=== PATIENT | male | born 1990 | race Caucasian/White ===

== ENCOUNTER 2024-03-10 14:13 | Outpatient (OUT) | payer BC, SELFPAY ==
--- NOTE | 2024-03-10 15:00 | PM.PRESUREVA ---
History of Present Illness History of Present Illness Chief complaint: Condyloma and requests sterilization Narrative: Presents to preadmission testing for scheduled excision of condyloma and request for vasectomy. He is scheduled with surgery with Dr. Al on 03/30/2024 for vasectomy and excision CO2 laser of penile condyloma Review of Systems ROS Narrative REVIEW OF SYSTEMS: Negative except as stated in HPI, ten or more systems reviewed. Constitutional: No fever, chills, weakness ENT: No sore throat or epistaxis Cardiovascular: No edema, chest pain, palpitations, or activity intolerance Respiratory: No shortness of breath, cough, or wheezing Musculoskeletal: No joint pain or swelling Gastrointestinal: No abdominal pain, constipation, diarrhea, or vomiting Genitourinary: No dysuria or hematuria Neurological: No numbness, tingling, weakness, or headache Psychiatric: No mood changes PFSH PFSH Medical History (Updated 03/10/24 @ 15:02 by Vicky Rosales) Vertigo ?R42 - Dizziness and giddiness (ICD-10) Panic attacks ?F41.0 - Panic disorder [episodic paroxysmal anxiety] (ICD-10) Anxiety ?F41.9 - Anxiety disorder, unspecified (ICD-10) Depression ?F32.A - Depression, unspecified (ICD-10) Seasonal allergies ?J30.2 - Other seasonal allergic rhinitis (ICD-10) Postoperative nausea and vomiting ?R11.2 - Nausea with vomiting, unspecified (ICD-10) ?Z98.890 - Other specified postprocedural states (ICD-10) Surgical History (Updated 03/10/24 @ 14:41 by Vicky Rosales) History of hernia repair ?Z98.890 - Other specified postprocedural states (ICD-10) ?Z87.19 - Personal history of other diseases of the digestive system (ICD-10) Social History (Updated 03/10/24 @ 14:34 by Vicky Rosales) Within the past year, how often did you have a drink containing alcohol: never Score interpretation: A score less than 4 is consistent with normal alcohol consumption. Smoking status: Never smoker Non-prescribed substance use: denies use Previous occupational history: production Highest level of school completed/degree received: high school graduate Meds Home Medications and Allergies Home Medications ?Medication ?Instructions ?Recorded ?Confirmed ?Type fexofenadine 180 mg tablet 180 mg PO DAILY 03/10/24 03/10/24 History (Melissa Allergy) vortioxetine 20 mg tablet 20 mg PO DAILY 03/10/24 03/10/24 History (Trintellix) Allergies Allergy/AdvReac Type Severity Reaction Status Date / Time No Known Drug Allergies Allergy Verified 03/10/24 14:30 Exam Narrative Exam Narrative: Constitutional: Awake, alert, comfortable, well-appearing, nontoxic, interactive, vital signs as charted Head: Normocephalic, atraumatic Eyes: Conjunctiva and lids normal to inspection, pupils normal ENT: Tympanic membranes pearly arriola, nonerythematous, noninjected, naris patent, posterior oropharynx clear, oral mucosa moist Neck: Supple, normal appearance, normal range of motion, no meningeal signs, no lymphadenopathy no bruit Respiratory: No respiratory distress, breath sounds clear Cardiovascular: Regular rate and rhythm, strong and regular heart tones Abdomen: Nontender, normal bowel sounds, soft, no CVA tenderness Musculoskeletal: Normal gait, no swelling or edema Skin: No rashes or induration, no lesions, only visible skin inspected Neuro: No neurological deficits, normal sensation Psychiatric: Oriented ?3, normal affect Assessment and Plan Assessment and Plan (1) Vasectomy planned: (2) Genital condyloma, male:
== END 2024-03-10 14:14 | disposition home or self-care (01) ==
LOC: PST 14:18
PROVIDERS: PCP Student in an Organized Health Care Education/Training Program; Visit Provider Urology
DX: Z01.818 Encounter for other preprocedural examination (principal); A63.0 Anogenital (venereal) warts
CPT/HCPCS: G0463

== ENCOUNTER 2024-03-30 09:03 | Day surgery (SDC) | payer BC, SELFPAY ==
[2024-03-10 14:34] VITALS: BMI 30.5
[2024-03-10 14:57] VITALS: BP 133/92; PULSE 85; TEMP 36.4; O2SAT 98
[2024-03-30] VITALS (14 sets, daily range): BP systolic 105–141; BP diastolic 68–86; PULSE 61–85; TEMP 36.1; O2SAT 92–100; BMI 30.1
--- OUTSIDE RECORDS SUMMARY | 2024-03-30 09:26 | XMS_ITS | CCD ---
Author Organization [facility] Inform ion Partnership [facility] Care Team Providers Care Bank Worker Name Role Phone CHEVY Bedoya Primary Care Provider MD Tristan Tan Attending Provider [phone] Tristan Tan Attending Unavailable Farnaz Bedoya Primary Care Unavailable Tristan Tan Admitting Unavailable Tristan Tan Attending Unavailable Farnaz Bedoya Primary Care Unavailable Tristan Tan Admitting Unavailable Isha Newberry MD Primary Care Provider Farnaz Bedoya NP Unavailable TEODORO GARZA Attending Unavailable APRIL JUÁREZ Attending Unavailable SOCORRO RUIZ Attending Unavailable Laron AL Attending Unavailable Laron LA Attending Unavailable Laron AL Attending Unavailable Allergies Allergy Classification Reported Allergen(s) Allergy Type Date of Onset Reaction(s) Facility (1 source) No Known Medication Allergies; Translations: [No Known Medication Allergies] Propensity to adverse reactions (disorder) [facility] Repository Medications Current Medications Medication Drug Class(es) Dates Sig (Normalized) Sig (Original) cephalexin 500 mg oral capsule (1 source) Cephalosporin Antibacterial Start: 12-29-2023 End: 01-03-2024 take 1 capsule by mouth twice daily at mealtime Keflex 500 mg Cap 500 mg = 1 cap(s), Oral, BID, start with first meal after procedure, X 5 day(s), # 10 cap(s), Refills(s) 0, Pharmacy: [facility], 178, cm, 12/29/23 8:58:00 EDT, Height/Length Dosing, 95, kg, 12/29/23 8:58:00 EDT, Weight Dosing Start Date: 12/29/23 Stop Date: 01/03/24 Status: Ordered doxycycline hyclate 100 mg oral capsule (2 sources) Tetracycline-class Drug Start: 05-23-2023 End: 06-02-2023 doxycycline (Vibramycin) 100 MG capsule Indications: Acute recurrent maxillary sinusitis Take 1 capsule (100 mg) by mouth in the morning and 1 capsule (100 mg) before bedtime. Do all this for 10 days. Take with at least 8 ounces (large glass) of water, do not lie down for 30 minutes after. 20 capsule 0 05/23/2023 06/02/2023 Active Melissa (6 sources) Histamine-1 Receptor Antagonist Start: 12-29-2023 Melissa Oral, Refills(s) 0 Start Date: 12/29/23 Status: Ordered take 1 tablet by mouth once tameka y fexofenadine (Melissa Allergy) 180 MG tablet Take 1 tablet by mouth 1 (one) time each day. Active fexofenadine / Pseudoephedrine (1 source) alpha-Adrenergic Agonist, Histamine-1 Receptor Antagonist Start: 09-29-2017 take 1 tablet by mouth every twenty-four hours at bedtime Fexofenadine-Pseudoephedrine (Melissa-D 24 Hour) 180-240 mg Tablet Extended Release 24 Hr Active 180 MG PO Daily at bedtime September 28, 2017 11:00pm pantoprazole (7 sources) Proton Pump Inhibitor Start: 12-29-2023 pantoprazole Daily Start Date: 12/29/23 Status: Ordered Start: 08-12-2023 take 1 tablet by elton th once daily pantoprazole (Protonix) 40 MG EC tablet Indications: Gastroesophageal reflux disease, unspecified whether esophagitis present Take 1 tablet (40 mg) by mouth Daily 90 tablet 08/12/2023 Active Start: 04-21-2023 take 1 tablet by elton th in the morning pantoprazole (Protonix) 40 MG EC tablet Indications: Gastroesophageal reflux disease, unspecified whether esophagitis present Take 1 tablet (40 mg) by mouth in the morning. 90 tablet 0 04/21/2023 Active Start: 05-14-2022 take 40 mg by mouth once daily at bedtime Pantoprazole Active 40 MG PO Daily at bedtime May 14, 2022 12:00am vortioxetine 20 mg oral tablet (9 sources) Start: 02-21-2024 take 1 tablet by mouth once daily Vortioxetine HBr (Trintellix) 20 MG tablet Indications: Major depressive disorder in remission, unspecified whether recurrent (CMS/HCC) Take 1 tablet by mouth Daily 90 tablet 3 02/21/2024 Active Start: 02-21-2024 take 1 tablet by elton th once daily Vortioxetine HBr (Trintellix) 20 MG tablet Indications: Major depressive disorder in remission, unspecified whether recurrent (CMS/HCC) Take 1 tablet by mouth Daily 90 tablet 3 02/21/2024 Active Start: 12-29-2023 Trintellix Ora l, Daily, Refills(s) 0 Start Date: 12/29/23 Status: Ordered Start: 06-04-2023 End: 02-21-2024 take 1 tablet by mouth once daily Vortioxetine HBr (Trintellix) 20 MG tablet Indications: Major depressive disorder in remission, unspecified whether recurrent (CMS/HCC) Take 1 tablet by mouth Daily 90 tablet 1 06/04/2023 02/21/2024 Discontinued (Reorder) Start: 04-21-2023 take 1 tablet by elton th in the morning Vortioxetine HBr (Trintellix) 20 MG tablet Indications: Major depressive disorder in remission, unspecified whether recurrent (CMS/HCC) Take 1 tablet by mouth in the morning. 90 tablet 0 04/21/2023 Active Start: 05-14-2022 take 1 tablet by elton th once daily at bedtime Vortioxetine (Trintellix) 20 mg tablet Active 20 MG PO Daily at bedtime May 14, 2022 12:00am Completed/Discontinued Medications Medication Drug Class(es) Dates Sig (Normalized) Sig (Original) acetaminophen 325 mg / HYDROcodone bitartrate 5 mg oral tablet (1 source) Opioid Agonist Start: 09-29-2017 End: 10-06-2017 take 1 tablet by mouth every six hours Hydrocodone-Acetam inophen Discontinued 1 TAB PO Q6H 28 7 September 29, 2017 October 05, 2017 11:02pm omeprazole 20 mg delayed release oral capsule (1 source) Proton Pump Inhibitor Start: 09-29-2017 End: 05-14-2022 take 20 mg by mouth once daily Omeprazole Discontinued 20 MG PO Daily September 28, 2017 11:00pm May 14, 2022 1:27pm Problems Problem Classification Problem Date Documented Date Episodic/Chronic Abdominal hernia (1 source) Incisional hernia without obstruction or gangrene; Translations: [Incisional hernia without obstruction or gangrene] Onset: 05-28-2022 Episodic Anxiety disorders (4 sources) Generalized anxiety disorder; Translations: [Generalized anxiety disorder] 02-21-2024 Chronic Contraceptive and procreative management (1 source) Contraception status; Translations: [Encounter for other general counseling and advice on contraception] Onset: 12-29-2023 Episodic Esophageal disorders (2 sources) Gastroesophageal reflux disease; Translations: [Gastro-esophageal reflux disease without esophagitis] 02-21-2024 Chronic Mood disorders (3 sources) Major depression in remission; Translations: [Major depressive disorder, single episode, in full remission] 02-21-2024 Chronic Other male genital disorders (1 source) Skin disorder of male genitalia 12-29-2023 Episodic Other upper respiratory infections (2 sources) Acute recurrent maxillary sinusitis; Translations: [Acute maxillary sinusitis] 05-23-2023 Episodic Unclassified (2 sources) Patient on antidepressant monitoring plan Onset: 02-21-2024 02-21-2024 Unclassified (2 sources) Baseline PHQ-9 Onset: 02-21-2024 02-21-2024 Viral infection (1 source) Condyloma acuminatum of the anogenital region; Translations: [Anogenital (venereal) warts] Onset: 12-29-2023 Episodic Results Test Name Value Interpretation Reference Range Lisa brooksy Ambulatory Visit Summaryon 0 12-29-2023 Ambulatory Visit Summary Ambulatory Visit Summary ANDI RECIO :1990 Visit Date:12/29/2023 Ambulatory Visit Instructions Your Diagnosis Vasectomy evaluation Genital condyloma, male Your Care Team Attending Physician - MORGAN ALBARADO, Laron Willoughby This Is Your Medications List cephalexin (Keflex 500 mg Cap) Contact prescribing physician if questions or concerns fexofenadine (Melissa) pantoprazole vortioxetine (Trintellix) Procedures Performed Hernia. Discharge Vitals Heart Rate (Peripheral) 88 Respiratory Rate 16 Blood Pressure 138/98 Height 178 cm Height 70 in Weight 95.0 kg Weight 209 lb BMI 29.98 What to do next You Need to Schedule the Following Appointments Follow Up with MORGAN ALBARADO, Laron Willoughby, URL When: Comments: sched vas Where: [facility] [address] [place] [address] [phone] Medications What How Much When Instructions New cephalexin (Keflex 500 mg Cap) 1 Capsules By Mouth 2 times a day Duration: 5 Days start with first meal after procedure Pickup at [facility] Unchanged fexofenadine (Melissa) By Mouth Contact prescribing physician if questions or concerns Unchanged pantoprazole Every day Contact prescribing physician if questions or concerns Unchanged vortioxetine (Trintellix) By Mouth Every day Contact prescribing physician if questions or concerns Pharmacy Information [facility]: [address] [place], [place] [id number] [phone] Allergies No Known Medication Allergies Problems Ongoing - Any problem that you are currently receiving treatment for. Depression Genital condyloma, male Patient Survey You may receive a survey via text or e-mail asking about your office visit. Please share your experience with us by completing your survey. We appreciate your feedback and thank you for choosing us for your care. Education Materials Cryosurgery for Skin Conditions Cryosurgery, also called cryotherapy, is the use of extremely cold liquid (liquid nitrogen) to freeze and remove abnormal tissue. Cryosurgery may be used to remove certain growths on the skin, such as: ? Warts. ? Skin sores that could turn into cancer (precancerous skin lesions or actinic keratoses). ? Some skin cancers. Cryosurgery usually takes a few minutes, and it can be done in your health care provider's office. Tell a health care provider about: ? Any allergies you have. ? All medicines you are taking, including vitamins, herbs, eye drops, creams, and pwfg-ztx-qzjcfay medicines. ? Any problems you or family members have had with anesthesia. ? Any bleeding problems you have. ? Any surgeries you have had. ? Any medical conditions you have. ? Whether you are or may be . What are the risks? Your provider will talk with you about risks. These may include: ? Infection. ? Bleeding. ? Scars. ? Changes in skin color. These may include skin that is bilingual medical receptionist or darker than it was before it was treated. ? Swelling. ? Hair loss in the treated area. ? Damage to nearby structures or organs, such as nerve damage and loss of feeling. This is rare. What happens before the procedure? Your provider will describe the procedure and discuss the benefits and risks of the procedure with you. What happens during the procedure? ? Your treatment will be done in one of these two ways: ? Your provider may apply a device (probe) to the skin. The probe has liquid nitrogen flowing through it to cool it down. The probe will be applied to the skin until the growth is frozen and destroyed. ? Your provider may apply liquid nitrogen to the skin until the growth is frozen and destroyed with: ? A swab. ? A spray. ? The treated area may be covered with a bandage (dressing). The procedure may vary among providers and hospitals. What happens after the procedure? ? Your blood pressure, heart rate, breathing rate, and blood oxygen level may be monitored until you leave the hospital or clinic. ? You may have a mild stinging or burning feeling in the area that was treated. This information is not intended to replace advice given to you by your health care provider. Make sure you discuss any questions you have with your health care provider. Document Revised: 04/22/2023 Document Reviewed: 11/26/2022 [employer] Patient Education ? 2023 [employer]. Vasectomy, Care After This sheet gives you information about how to care for yourself after your procedure. Your health care provider may also give you more specific instructions. If you have problems or questions, contact your health care provider. What can I expect after the procedure? After the procedure, it is common to have: ? Mild pain, swelling, or discomfort in your scrotum or redness on your scrotum. ? Some blood coming from your incisions or puncture sites for 1 or 2 days. ? (more content not included)... Normal [facility] Urology Office/Clinic Noteon 12-29-2023 Urology Office/Clinic Note Urology Office/Clinic Note Chief Complaint New pt HPI Staff New Pt. Vasectomy consult. Pt has 3 children. Dysuria: denies pain or burning Incomplete bladder emptying: denies Hematuria: denies visible blood Frequency: denies Urgency: denies Nocturia: denies Stream: denies hesitancy, denies weak stream Leaking: denies Post void dripping: denies Wearing pads/ Depends: denies Urge incontinence: denies Stress incontinence: denies Incontinence without Sensory Awareness: denies Abdominal pain: denies Flank pain: denies Sexual complaints: denies History of Present Illness Tests reviewed: reviewed UA I have reviewed the previous health record information and history for this patient from external providers. I have reviewed and verified the staff HPI to be accurate for this encounter. Review of Systems PHQ Score Initial Depression Screen Score: 0 SCORE ROS - Provider Constitutional: denies weight loss, denies hot flashes. Eyes: denies eye problems. Gastrointestinal: denies nausea, denies vomiting. Cardiovascular: denies chest pain or angina. Integumentary: no dryness Musculoskeletal: denies musculoskeletal symptoms. ENMT: denies otolaryngeal symptoms. Respiratory: no shortness of breath. Heme/Lymph: denies easy bleeding tendency, denies easy bruising tendency. Psychiatric: no confusion, no anxiety. Genitourinary: See HPI. Physical Exam Vitals & Measurements HR: 88(Peripheral) RR: 16 BP: 138/98 HT: 70 in HT: 178 cm WT: 95.0 kg WT: 209 lb BMI: 29.98 General Appearance: alert, no distress, well nourished, well developed male. Head: normocephalic . Eyes: normal orbit and globe. ENMT: normal examination of external ears. Chest: Lungs CTA, respirations non labored. Cardiovascular: regular rate and rhythm. Abdomen: soft, non distended, no tenderness, no mass or organomegaly, no hernia. Genitourinary: normal scrotum, normal testes, normal urethra, normal epididymis, normal vas deferens/spermatic cord. Flank Pain: none. Bladder: nonpalpable. Penis: normal shaft, abnormal glans - multiple condylomas and skin tags. each is 1cm or less. Lymph Nodes: unremarkable palpation of the cervical area. Skin: warm, dry, no bruising. Psychiatric: cooperative, affect appropriate for age, normal judgement, euthymic mood. Assessment/Plan Andi is a 33 yo male new pt here for vasectomy consult. 1. Vasectomy evaluation (Z30.09: Encounter for other general counseling and advice on contraception) Pt has 3 children and desires sterilization. UA today negative for blood and infection. -Will schedule Vasectomy. The procedural risks, benefits, details, and treatment alternatives of sterilization have been discussed with the patient today. He understands this procedure is considered permanent, even though vasectomy reversals can be performed. There is no guarantee of successful reversal resulting in , however. Risks discussed include bleeding, infection, failure with in about 1:2500, post-vasectomy syndrome (chronic pain in the testicle or scrotum), possible association with prostate cancer development in the future, and erection problems, among others. Despite these risks, he wishes to proceed. He also understands that he is not considered sterile until a negative semen sample has been received after about 2-3 months after the vasectomy. Full informed consent has been obtained. Will order Mac anesthesia. 2. 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 Risks and Benefits were discussed with the patient. These include bleeding, infection, pain, and need for additional procedures. Pre-op consent reviewed with and obtained from patient. Order Mac anesthesia. Follow-up With When Contact Information MORGAN ALBARADO, Laron Willoughby, URL [facility] [address], [place] [address] [phone] Additional Instructions: sched vas & excision of condylomas Patient Education Cryosurgery for Skin Conditions Vasectomy, Care After Vasectomy Karla Szymanski, personally scribed for Dr. Al on 12/29/2023 10:06:04. . Documentation recorded by the scribeKarla, accurately reflects the services(s) I performed and decisions made by me. Authenticated by Dr. Al on 12/29/2023 10:09:18. Problem List/Past Medical History Ongoing Depression Genital condyloma, male Historical No qualifying data Procedure/Surgical History Hernia. Medications Melissa, Oral pantoprazole, Daily Trintellix, Oral, Daily Allergies No Known Medication Allergies Social History Tobacco Never (less than 100 in lifetime) Tobacco Use:. Never Smokeless Tobacco Use:., 12/29/2023 Family History Family history is negative Immunizations Vaccine Date Status SARS-CoV-2 (COVID-19) mRNA- (more content not included)... Normal [facility] Comment on above: Result Comment: Elec tronically Signed By: Laron AL MD\.br\Date and Time Signed: 12/29/23 10:09 EDT\.br\Electronically Co-Signed By: Karla Doty\.br\Date and Time Co-Signed: 12/29/23 10:06 EDT Nicholas 05-28-2022 L -- ---- Specimen: [id number] Received: 05/28/22 Status: MASONPrincess Willams Num: [id number] Spec Type: Surgical Subm Dr: Tristan Tan MD Tissues: A Hernia Sac (HERNIA SAC) Procedures: René SHELLEY/Wendy L2 ---- Age/ Patient Sex Location Account Attending Physician ---- Andi Recio 31/M [place] [id number] Tristan Tan MD ---- SPEC NUM: [id number] RECD: 05/28/22 STATUS: ERNESTINE WILLAMS NUM: [id number] VANNESA: 05/28/22- [facility] DR: Tristan Tan MD ENTERED: 05/28/[address] [facility] [address]: SPEC TYPE: Surgical DEPT: S ORDERED: HE, Gross/Micro L2 ORDERED: HE, Gross/Micro L2 Pathological Diagnosis Hernia sac, excision: - Benign fibroadipose tissue consistent with hernia sac. Clinical Information Incisional hernia Gross Description Received in formalin labeled with the patient's name, number and hernia sac is a 5.0 x 1.7 x 1.2 cm yellow red fibromembranous tissue with a urias-pink, rubbery cut surface. Applications Specialist sections are submitted in one cassette labeled A1. Microscopic Description One glass slide with H E stained material has been examined. The microscopic findings support the above pathologic diagnosis. CPT Codes 47868 ---- ---- Specimen: [id number] Received: 05/28/22 Status: ERNESTINE Екатерина Num: [id number] Spec Type: Surgical Subm Dr: Tristan Tan MD Tissues: A Hernia Sac (HERNIA SAC) Procedures: HE, Gross/Wendy L2 ---- Patient: Andi Recio [id number] (Continued) ---- Signed (signature on file) Harris Dunlap MD 05/29/22 1246 [facility] Vital Signs Date Time Vital Sign Value Performing Clinician Facility 02-21-2024 07:57-0500 Body height 180.3 cm Socorro Ruiz MD, IBCLC Work Phone: [facility] 02-21-2024 07:57-0500 Body mass index (BMI) [Ratio] 29.26 kg/m2 Socorro Ruiz MD, IBCLC Work Phone: [facility] 02-21-2024 07:57-0500 Body temperature 96.6 [degF] Socorro Ruiz MD, IBCLC Work Phone: [facility] 02-21-2024 07:57-0500 Body weight 95.17 kg Socorro Ruiz MD, IBCLC Work Phone: [facility] 02-21-2024 07:57-0500 Diastolic blood pressure 68 mm[Hg] Socorro Ruiz MD, IBCLC Work Phone: [facility] 02-21-2024 07:57-0500 Heart rate 92 /min Socorro Ruiz MD, IBCLC Work Phone: [facility] 02-21-2024 07:57-0500 SaO2% (BldA) [Mass fraction] 99 % Socorro Ruiz MD, IBCLC Work Phone: [facility] 02-21-2024 07:57-0500 Systolic blood pressure 120 mm[Hg] Socorro Ruiz MD, IBCLC Work Phone: [facility] 12-29-2023 08:56-0400 Blood Pressure Location Laron AL [facility] 12-29-2023 08:56-0400 Diastolic blood pressure 98 mm[Hg] Laron AL [facility] 12-29-2023 08:56-0400 Heart rate 88 /min Laron AL [facility] 12-29-2023 08:56-0400 Respiratory rate 16 /min Laron AL [facility] 12-29-2023 08:56-0400 Systolic blood pressure 138 mm[Hg] Laron AL [facility] 05-23-2023 14:52-0500 Body mass index (BMI) [Ratio] 30.56 kg/m2 Teodoro Garza DO Work Phone: [facility] 05-23-2023 14:52-0500 Body temperature 97.81 [degF] Teodoro Garza DO Work Phone: [facility] 05-23-2023 14:52-0500 Body weight 96.62 kg Teodoro Garza DO Work Phone: [facility] 05-23-2023 14:52-0500 Diastolic blood pressure 86 mm[Hg] Teodoro Garza DO Work Phone: [facility] 05-23-2023 14:52-0500 Heart rate 87 /min Teodoro Garza DO Work Phone: [facility] 05-23-2023 14:52-0500 SaO2% (BldA) [Mass fraction] 99 % Teodoro Garza DO Work Phone: [facility] 05-23-2023 14:52-0500 Systolic blood pressure 132 mm[Hg] Teodoro Garza DO Work Phone: [facility] 05-28-2022 12:31-0500 Diastolic blood pressure 74 mm[Hg] MEDICAL DATA ANALYST-C Farnaz Bedoya Work Phone: [facility] 05-28-2022 12:31-0500 Heart rate 73 /min MEDICAL DATA ANALYST-C Farnaz Aureliano Work Phone: [facility] 05-28-2022 12:31-0500 Respiratory rate 16 /min MEDICAL DATA ANALYST-C Farnaz Bedoya Work Phone: [facility] 05-28-2022 12:31-0500 SaO2% (BldA) [Mass fraction] 96 % MEDICAL DATA ANALYST-C Farnaz Bedoya Work Phone: [facility] 05-28-2022 12:31-0500 Systolic blood pressure 122 mm[Hg] MEDICAL DATA ANALYST-C Farnaz Bedoya Work Phone: [facility] 05-28-2022 11:08-0500 Body temperature 98.4 [degF] MEDICAL DATA ANALYST-C Farnaz Bedoya Work Phone: [facility] 05-28-2022 10:33-0500 Inhaled oxygen flow rate 8 L/min MEDICAL DATA ANALYST-C Farnaz Bedoya Work Phone: [facility] 05-28-2022 08:52-0500 Body height 180.34 cm MEDICAL DATA ANALYST-C Farnaz Bedoya Work Phone: [facility] 05-28-2022 08:52-0500 Body mass index (BMI) [Ratio] 29.5 kg/m2 MEDICAL DATA ANALYST-C Farnaz Aureliano Work Phone: [facility] 05-28-2022 08:52-0500 Body weight 96 kg VINNY-C Farnazantony Bedoya Work Phone: [facility] Encounters Encounter Date Encounter Type Care Provider Facility Start: 05-03-2024 ambulatory Laronolya AL Evelyn ty:[facility] Start: 03-30-2024 ambulatory Laronolya AL Facili ty:[id number] Start: 02-21-2024 End: 02-21-2024 Bamboo flowsheet Socorro Ruiz MD, IBCLC Work Phone: [facility] Start: 02-21-2024 End: 02-21-2024 Bamboo flowsheet Socorro Ruiz MD, IBCLC Work Phone: [facility] Start: 02-21-2024 End: 02-21-2024 Patient encounter status Socorro Ruiz MD, IBCLC Work Phone: [facility] Work Phone: Start: 02-21-2024 End: 02-21-2024 Periodic preventive med est patient 18-39 yrs Socorro Ruiz MD, IBCLC Work Phone: [facility] Comment on above: Well adult exam (Zoraida malena Dx); Major depressive disorder in remission, unspecified whether recurrent (CMS/HCC); Generalized anxiety disorder (CMS/HCC); Panic attacks (CMS/HCC); Gastroesophageal reflux disease, unspecified whether esophagitis present Start: 02-21-2024 End: 02-21-2024 ambulatory SOCORRO RUIZ Not Available Start: 01-28-2024 ambulatory Laronolya AL Facility :[facility] Start: 12-29-2023 End: 12-29-2023 ambulatory Laron Fartun AL Facility:[facility] Start: 12-29-2023 End: 12-29-2023 Patient encounter procedure Laron R AL [facility] Start: 05-23-2023 End: 05-23-2023 ambulatory TEODORO GARZA Not Available Start: 05-23-2023 End: 05-23-2023 Office outpatient visit 25 minutes Teodoro Garza DO Work Phone: [facility] Comment on above: Acute recurrent maxi llary sinusitis (Primary Dx) Start: 03-14-2023 End: 03-14-2023 ambulatory APRIL JUÁREZ Not Available Start: 05-28-2022 End: 05-28-2022 ambulatory [facility] Facility:[facility] Start: 05-28-2022 End: 05-28-2022 Admission to same day surgery center MEDICAL DATA ANALYST-Massimo Bedoya Work Phone: [facility] [place] Start: 05-28-2022 End: 05-28-2022 ambulatory VINNY-Massimo Bedoya Work Phone: [facility] Work Phone: Start: 05-14-2022 End: 05-14-2022 ambulatory [facility] Facility:[facility] Start: 05-14-2022 End: 05-14-2022 Patient encounter procedure VINNY-Massimo Bedoya Work Phone: [facility]-Pre-Surgical Testing Work Phone: Procedures Date Procedure Procedure Detail Performing Clinician Start: 05-28-2022 OR Incisional Hernia Repair W/Mesh (Not Applicable) CHEVY Bedoya Work Phone: Herniated structure (morphologic abnormality) Laron MORGAN Plan of Treatment Date Care Activity Detail Author Start: 04-17-2024 Influenza vaccination Influenza Vacc ine (#1) [facility] Comment on above: Postponed from 12/11 (Patient Refused) Start: 02-21-2024 End: 02-21-2024 Patient encounter procedure 02/21/2024 8:00 AM EST Office Visit [facility] [address] [place] [address] Socorro Ruiz MD, IBCLC [address] [place] [address] Arrived [facility] Comment on above: Arrived Start: 12-12-2023 Influenza vaccination Influenza Vacc ine (#1) [facility] Start: 12-11-2022 Influenza vaccination Influenza Vacc ine (#1) [facility] Start: 05-28-2022 End: 05-28-2022 [facility] Patient Education Abdominal Barbie ia Repair (DC) Hydrocodone and Acetaminophen [facility] Work Phone: Patient referral [facility] Work Phone: Immunizations Immunization Date Immunization Notes Care Provider Fa cility 08-30-2020 COVID-19 mRNA-1273 (Moderna) MEDICAL DATA ANALYST-C Farnaz Bedoya Work Phone: [facility] 08-01-2020 COVID-19 mRNA-1273 (Moderna) MEDICAL DATA ANALYST-C Farnaz Bedoya Work Phone: [facility] Payers Date Payer Category Payer Self-pay [id number] 2017 [facility] [id number] 2017 Unknown [id number] 2017 Unknown [id number] 1991 Unknown [id number] 1991 Unknown [id number] 1991 Unknown [id number] 1991 Unknown [id number] 1991 Unknown [id number] Unknown [employer] BARNES/AYAAN [id number] Unknown [id number] Unknown [id number] [id number] Social History Date Type Detail Facility Start: 05-28-2022 End: 12-29-2023 Tobacco smoking status [facility] Never smoked tobacco (finding) [facility] Start: 1990 Sex Assigned At Male [facility] Start: 05-23-2023 Tobacco smoking status [facility] Tobacco smoking consumption unknown [facility] Start: 1990 Sex Assigned At Not on file [facility] Start: 02-20-2024 Gender identity Not on file [facility] Start: 02-20-2024 History of Social function [facility] How often do you nee d to have someone help you when you read instructions, pamphlets, or other written material from your doctor or pharmacy [SILS] Never [facility] Do you belong to any clubs or organizations such as jainism groups, unions, fraternal or athletic groups, or school groups? No [facility] Are you now , , , , never or living with a partner? [facility] How often to you hav e a drink containing alcohol? Monthly or less [facility] How often do you hav e 6 or more drinks on 1 occasion? Never [facility] How hard is it for y ou to pay for the very basics like food, housing, medical care, and heating Not very hard [facility] Do you feel stress - tense, restless, nervous, or anxious, or unable to sleep at night because your mind is troubled all the time - these days [OSQ] Only a little [facility] (I/We) worried wheth er (my/our) food would run out before (I/we) got money to buy more. Never true [facility] Goals Date Patient Goal Desired Activity /State Personal health goal Functional Status Date Assessment Result Facility 12-29-2023 Functional Status N/A [facility] Clinical Notes 05-23-2023 to 02-21-2024 Socorro Ruiz MD, IBCLC - 02/21/2024 8:00 AM Cassy Garza DO - 05/23/2023 2:40 PM EST Note Date & Type Note Facility 02-21-2024 History of Present illness Narrative Images from the original note were not included. Pt is here for [place] paperwork Andi Recio is a 33 y.o. male who presents today for annual physical & wellness exam. Subjective History of Present Illness The patient is a 33-year-old male here today for an annual physical and follow-up on anxiety. He is diagnosed with anxiety and depression, which is currently well-managed with Trintellix. He states he has not been taking the PPI. He experiences intermittent heartburn for which he has been taking TUMS Supplemental Information He takes Melissa for allergies and Protonix for GERD. He has [place] paperwork that needs filled out. Past Medical History: Diagnosis Date Depression (CMS/HCC) Seasonal allergies Past Surgical History: Procedure Laterality Date HERNIA REPAIR Social History Socioeconomic History Marital status: Unmarried Spouse name: Not on file Number of children: Not on file Years of education: Not on file Highest education level: Not on file Occupational History Not on file Tobacco Use Smoking status: Unknown Smokeless tobacco: Not on file Substance and Sexual Activity Alcohol use: Not on file Drug use: Not on file Sexual activity: Not on file Other Topics Concern Not on file Social History Narrative Not on file Social Drivers of Health Financial Resource Strain: Low Risk (02/20/2024) Overall Financial Resource Strain (CARDIA) Difficulty of Paying Living Expenses: Not very hard Food Insecurity: No Food Insecurity (02/20/2024) Hunger Vital Sign Worried About Running Out of Food in the Last Year: Never true Ran Out of Food in the Last Year: Never true Transportation Needs: No Transportation Needs (02/20/2024) PRAPARE - Transportation Lack of Transportation (Medical): No Lack of Transportation (Non-Medical): No Physical Activity: Sufficiently Active (02/20/2024) Exercise Vital Sign Days of Exercise per Week: 5 days Minutes of Exercise per Session: 60 min Stress: No Stress Concern Present (02/20/2024) [place] [place] [employer] - Occupational Stress Questionnaire Feeling of Stress : Only a little Social Connections: Socially Isolated (02/20/2024) Social Connection and Isolation Panel [NHANES] Frequency of Communication with Friends and Family: Once a week Frequency of Social Gatherings with Friends and Family: Once a week Attends Muslim Services: Never Active Member of Clubs or Organizations: No Attends Club or Organization Meetings: Patient declined Marital Status: Intimate Partner Violence: Not on file Housing Stability: Low Risk (02/20/2024) Housing Stability Vital Sign Unable to Pay for Housing in the Last Year: No Number of Times Moved in the Last Year: 0 Homeless in the Last Year: No No family history on file. Current Outpatient Medications on File Prior to Visit Medication Sig Dispense Refill fexofenadine (Melissa Allergy) 180 MG tablet Take 1 tablet by mouth 1 (one) time each day. pantoprazole (Protonix) 40 MG EC tablet Take 1 tablet (40 mg) by mouth Daily 90 tablet 0 Vortioxetine HBr (Trintellix) 20 MG tablet Take 1 tablet by mouth Daily 90 tablet 1 No current facility-administered medications on file prior to visit. I have reviewed and reconciled the history and medication list with the patient today. Healthcare Maintenance & Screening Schedule Most recent: Colon cancer screening not indicated at this time HTN Controlled Yes Annual screening labs N/A Advanced Care Planning N Vaccines Pneumococcal N/A Shingles N/A Flu Patient declines RSV N/A TDaP Patient declines Care Team Patient Care Team: Isha Newberry MD as PCP - General (Family Medicine) Farnaz Bedoya NP as Nurse Practitioner (Family Medicine) Objective Vitals: Vitals: 02/21/24 0757 BP: 120/68 Pulse: 92 Temp: 96.6 F SpO2: 99% Physical Exam: Physical Exam Constitutional: General: He is awake. Appearance: He is well-developed and normal weight. HENT: Head: Normocephalic and atraumatic. Right Ear: Tympanic membrane, ear canal and external ear normal. Left Ear: Tympanic membrane, ear canal and external ear normal. Nose: No mucosal edema, congestion or rhinorrhea. Mouth/Throat: Mouth: Mucous membranes are moist. No oral lesions. Dentition: Normal dentition. Eyes: General: No scleral icterus. Extraocular Movements: Extraocular movements intact. Conjunctiva/sclera: Conjunctivae normal. Neck: Thyroid: No thyroid mass, thyromegaly or thyroid tenderness. Cardiovascular: Rate and Rhythm: Normal rate and regular rhythm. Heart sounds: Normal heart sounds, S1 normal and S2 normal. No murmur heard. No friction rub. No gallop. Pulmonary: Effort: Pulmonary effort is normal. Breath sounds: Normal breath sounds. No wheezing, rhonchi or rales. Abdominal: General: Bowel sounds are normal. There is no distension. Palpations: Abdomen is soft. Tenderness: There is no abdominal tenderness. Musculoskeletal: General: Normal range of motion. Cervical back: Normal range of motion and neck supple. Right lower leg: No edema. Left lower leg: No edema. Lymphadenopathy: Cervical: No cervical adenopathy. Skin: General: Skin is warm and dry. Neurological: General: No focal deficit present. Mental Status: He is alert and oriented to person, place, and time. Mental status is at baseline. Sensory: Sensation is intact. Motor: Motor function is intact. Psychiatric: Attention and Perception: Attention normal. Mood and Affect: Affect normal. Speech: Speech normal. Behavior: Behavior is cooperative. Thought Content: Thought content normal. Assessment & Plan Andi Recio is a 33 y.o. male who presents today for annual physical & wellness exam. Assessment & Plan Well adult exam Normal physical exam today, except as noted. Medication reconciliation completed. Chronic conditions reviewed, stable. Reviewed healthcare maintenance and screening recommendations. Counseled on nutrition and exercise recommendations. Reviewed immunizations recommendations Major depressive disorder in remission, unspecified whether recurrent (CMS/HCC) well controlled Current medications: Trintillex 20mg daily Encouraged regular physical exercise, well-rounded diet, engaging in hobbies outside of work, and interacting with friends. Monitor symptoms every 1 year or sooner if needed Generalized anxiety disorder (CMS/HCC) Chronic. well controlled Current medications: Trintillex 20mg daily Continue current regimen. Reviewed counseling & pharmacotherapy options. Encouraged regular physical exercise, well-rounded diet, engaging in hobbies outside of work, and interacting with friends. Monitor symptoms every 1 year or sooner if needed Panic attacks (CMS/HCC) Intermittent. Unable to work if these happen. Filled out [place] paperwork to permit 1 day per week off as needed for panic attacks. If these occur more often, we will schedule appt to discuss alternative treatment options. Gastroesophageal reflux disease, unspecified whether esophagitis present stable Reviewed use of antacid medication and/or diet modifications of decreasing caffeine, spicy foods, chocolate, and avoiding alcohol, tobacco, NSAIDs, and reducing citrus acids. Rlww-laf-sftuhll Pepcid and TUMS recommended for use as needed. If heartburn symptoms recur and interfere with daily activities, Protonix can be restarted. Follow up in 1 year for annual physical Socorro Ruiz MD, IBCLC [facility] documented in this encounter [facility] 12-29-2023 Hospital Discharge instructions Patient Education 12/29/2023 10:05:45 Cryosurgery for Skin Conditions Cryosurgery for Skin Conditions Cryosurgery, also called cryotherapy, is the use of extremely cold liquid (liquid nitrogen) to freeze and remove abnormal tissue. Cryosurgery may be used to remove certain growths on the skin, such as: Warts. Skin sores that could turn into cancer (precancerous skin lesions or actinic keratoses). Some skin cancers. Cryosurgery usually takes a few minutes, and it can be done in your health care provider's office. Tell a health care provider about: Any allergies you have. All medicines you are taking, including vitamins, herbs, eye drops, creams, and yyat-ukj-akiavxk medicines. Any problems you or family members have had with anesthesia. Any bleeding problems you have. Any surgeries you have had. Any medical conditions you have. Whether you are or may be . What are the risks? Your provider will talk with you about risks. These may include: Infection. Bleeding. Scars. Changes in skin color. These may include skin that is bilingual medical receptionist or darker than it was before it was treated. Swelling. Hair loss in the treated area. Damage to nearby structures or organs, such as nerve damage and loss of feeling. This is rare. What happens before the procedure? Your provider will describe the procedure and discuss the benefits and risks of the procedure with you. What happens during the procedure? Your treatment will be done in one of these two ways: ?Your provider may apply a device (probe) to the skin. The probe has liquid nitrogen flowing through it to cool it down. The probe will be applied to the skin until the growth is frozen and destroyed. ?Your provider may apply liquid nitrogen to the skin until the growth is frozen and destroyed with: ?A swab. ?A spray. The treated area may be covered with a bandage (dressing). The procedure may vary among providers and hospitals. What happens after the procedure? Your blood pressure, heart rate, breathing rate, and blood oxygen level may be monitored until you leave the hospital or clinic. You may have a mild stinging or burning feeling in the area that was treated. This information is not intended to replace advice given to you by your health care provider. Make sure you discuss any questions you have with your health care provider. Document Revised: 04/22/2023 Document Reviewed: 11/26/2022 [employer] Patient Education 2023 [employer]. 12/29/2023 09:48:36 Vasectomy, Care After Vasectomy, Care After This sheet gives you information about how to care for yourself after your procedure. Your health care provider may also give you more specific instructions. If you have problems or questions, contact your health care provider. What can I expect after the procedure? After the procedure, it is common to have: Mild pain, swelling, or discomfort in your scrotum or redness on your scrotum. Some blood coming from your incisions or puncture sites for 1 or 2 days. Blood in your semen. Follow these instructions at home: Medicines Take zinm-thr-zfnhwem and prescription medicines only as told by your health care provider. Avoid taking any medicines that contain aspirin or NSAIDs, such as ibuprofen. These medicines can make bleeding worse. Activity For the first 2 days after surgery, avoid physical activity and exercise that requires a lot of energy. Ask your health care provider what activities are safe for you. Do not take part in sports or perform heavy physical labor until your pain has improved, or until your health care provider says it is okay. You may have limits on the amount of weight you can lift as told by your health care provider. Do not ejaculate for at least 1 week after the procedure, or for as long as you are told. You may resume sexual activity 7 10 days after your procedure, or when your health care provider approves. Use a different method of control (contraception) until you have had test results that confirm that there is no sperm in your semen. Scrotal support Use scrotal support, such as a jockstrap or underwear with a supportive pouch, as needed for 1 week after your procedure. If you feel discomfort in your scrotum, you may remove the scrotal support to see if the discomfort is relieved. Sometimes scrotal support can press on the scrotum and cause or worsen discomfort. If your skin gets irritated, you may add some germ-free (sterile), fluffed bandages or a clean washcloth to the scrotal support. Managing pain and swelling If directed, put ice on the affected area. To do this: Put ice in a plastic bag. Place a towel between your skin and the bag. Leave the ice on for 20 minutes, 2 3 times a day. Remove the ice if your skin turns bright red. This is very important. If you cannot feel pain, heat, or cold, you have a greater risk of damage to the area. General instructions Check your incisions or puncture sites every day for signs of infection. Check for: ?Redness, swelling, or more pain. ?Fluid or blood. ?Warmth. ?Pus or a bad smell. Leave stitches (sutures) in place. The sutures will dissolve on their own and do not need to be removed. Keep all follow-up visits. This is important because you will need a test to confirm that there is no sperm in your semen. Multiple ejaculations are needed to clear out sperm that were beyond the vasectomy site. You will need one test result showing that there is no sperm in your semen before you can resume unprotected sex. This may take 2 4 months after your procedure. If you were given a sedative during the procedure, it can affect you for several hours. Do not drive or operate machinery until your health care provider says that it is safe. Contact a health care provider if: You have redness, swelling, or more pain around an incision or puncture site, or in your scrotum area. You have bleeding from an incision or puncture site. You have pus or a bad smell coming from an incision or puncture site. You have a fever. An incision or puncture site opens up. Get help right away if: You develop a rash. You have trouble breathing. Summary After your procedure, it is common to have mild pain, swelling, redness, or discomfort in your scrotum. For the first 2 days after surgery, avoid physical activity and exercise that requires a lot of energy. Put ice on the affected area. Leave the ice on for 20 minutes, 2 3 times a day. If you were given a sedative during the procedure, it can affect you for several hours. Do not drive or operate machinery until your health care provider says that it is safe. This information is not intended to replace advice given to you by your health care provider. Make sure you discuss any questions you have with your health care provider. Document Revised: 08/15/2020 Document Reviewed: 08/15/2020 [employer] Patient Education 2023 [employer]. 12/29/2023 09:48:35 Vasectomy Vasectomy Vasectomy is a procedure in which the vas deferens is cut and then tied or burned (cauterized). The vas deferens is a tube that carries sperm from the testicle to the part of the body that drains urine from the bladder (urethra). This procedure blocks sperm from going through the vas deferens and penis during ejaculation. This ensures that sperm does not go into the vagina during sex. Vasectomy does not affect sexual desire or performance and does not prevent sexually transmitted infections. Vasectomy is considered a permanent and very effective form of control (contraception). The decision to have a vasectomy should not be made during a stressful time, such as after the loss of a or a divorce. You and your partner should decide on whether to have a vasectomy when you are sure that you do not want children in the future. Tell a health care provider about: Any allergies you have. All medicines you are taking, including vitamins, herbs, eye drops, creams, and kjcg-thj-ftcdxei medicines. Any problems you or family members have had with anesthetic medicines. Any blood disorders you have. Any surgeries you have had. Any medical conditions you have. What are the risks? Generally, this is a safe procedure. However, problems may occur, including: Infection. Bleeding and swelling of the scrotum. The scrotum is the sac that contains the testicles, blood vessels, and structures that help deliver sperm and semen. Allergic reactions to medicines. Failure of the procedure to prevent . There is a very small chance that the tied or cauterized ends of the vas deferens may reconnect (recanalization). If this happens, you could still make a woman . Pain in the scrotum that continues after you heal from the procedure. What happens before the procedure? Medicines Ask your health care provider about: ?Changing or stopping your regular medicines. This is especially important if you are taking diabetes medicines or blood thinners. ?Taking medicines such as aspirin and ibuprofen. These medicines can thin your blood. Do not take these medicines unless your health care provider tells you to take them. ?Taking pqvj-sbo-rcbzceu medicines, vitamins, herbs, and supplements. You may be told to take a medicine to help you relax (sedative) a few hours before the procedure. General instructions Do not use any products that contain nicotine or tobacco for at least 4 weeks before the procedure. These products include cigarettes, e-cigarettes, and chewing tobacco. If you need help quitting, ask your health care provider. Plan to have a responsible adult take you home from the hospital or clinic. If you will be going home right after the procedure, plan to have a responsible adult care for you for the time you are told. This is important. Ask your health care provider: ?How your surgery site will be marked. ?What steps will be taken to help prevent infection. These steps may include: ?Removing hair at the surgery site. ?Washing skin with a germ-killing soap. ?Taking antibiotic medicine. What happens during the procedure? You will be given one or more of the following: ?A sedative, unless you were told to take this a few hours before the procedure. ?A medicine to numb the area (local anesthetic). Your health care provider will feel, or palpate, for your vas deferens. To reach the vas deferens, one of two methods may be used: ?A very small incision may be made in your scrotum. ?A punctured opening may be made in your scrotum, without an incision. Your vas deferens will be pulled out of your scrotum and cut. Then, the vas deferens will be closed in one of two ways: ?Tied at the ends. ?Cauterized at the ends to seal them off. The vas deferens will be put back into your scrotum. The incision or puncture opening will be closed with absorbable stitches (sutures). The sutures will eventually dissolve and will not need to be removed after the procedure. The procedure will be repeated on the other side of your scrotum. The procedure may vary among health care providers and hospitals. What happens after the procedure? You will be monitored to make sure that you do not have problems. You will be asked not to ejaculate for at least 1 week after the procedure, or for as long as you are told. You will need to use a different form of contraception for 2 4 months after the procedure, until you have test results confirming that there are no sperm in your semen. You may be given scrotal support to wear, such as a jockstrap or underwear with a supportive pouch. If you were given a sedative during the procedure, it can affect you for several hours. Do not drive or operate machinery until your health care provider says that it is safe. Summary Vasectomy blocks sperm from being released during ejaculation. This procedure is considered a permanent and very effective form of control. Your scrotum will be numbed with medicine (local anesthetic) for the procedure. After the procedure, you will be asked not to ejaculate for at least 1 week, or for as long as you are told. You will also need to use a different form of contraception until your test results confirm that there are no sperm in your semen. This information is not intended to replace advice given to you by your health care provider. Make sure you discuss any questions you have with your health care provider. Document Revised: 08/15/2020 Document Reviewed: 08/15/2020 [employer] Patient Education 2023 [employer]. Follow Up Care 10/06/2023 13:33:25 With:MORGAN ALBARADO, Laron Willoughby, URL Address: [facility] [address] [place] [address] [phone] When: Unknown Comments:meño blas [facility] 12-29-2023 Note Patient Education Dermatology Cryosurgery for Skin Conditions Cryosurgery, also called cryotherapy, is the use of extremely cold liquid (liquid nitrogen) to freeze and remove abnormal tissue. Cryosurgery may be used to remove certain growths on the skin, such as: ? Warts. ? Skin sores that could turn into cancer (precancerous skin lesions or actinic keratoses). ? Some skin cancers. Cryosurgery usually takes a few minutes, and it can be done in your health care provider's office. Tell a health care provider about: ? Any allergies you have. ? All medicines you are taking, including vitamins, herbs, eye drops, creams, and tjgl-xby-kzefopm medicines. ? Any problems you or family members have had with anesthesia. ? Any bleeding problems you have. ? Any surgeries you have had. ? Any medical conditions you have. ? Whether you are or may be . What are the risks? Your provider will talk with you about risks. These may include: ? Infection. ? Bleeding. ? Scars. ? Changes in skin color. These may include skin that is bilingual medical receptionist or darker than it was before it was treated. ? Swelling. ? Hair loss in the treated area. ? Damage to nearby structures or organs, such as nerve damage and loss of feeling. This is rare. What happens before the procedure? Your provider will describe the procedure and discuss the benefits and risks of the procedure with you. What happens during the procedure? ? Your treatment will be done in one of these two ways: ? Your provider may apply a device (probe) to the skin. The probe has liquid nitrogen flowing through it to cool it down. The probe will be applied to the skin until the growth is frozen and destroyed. ? Your provider may apply liquid nitrogen to the skin until the growth is frozen and destroyed with: ? A swab. ? A spray. ? The treated area may be covered with a bandage (dressing). The procedure may vary among providers and hospitals. What happens after the procedure? ? Your blood pressure, heart rate, breathing rate, and blood oxygen level may be monitored until you leave the hospital or clinic. ? You may have a mild stinging or burning feeling in the area that was treated. This information is not intended to replace advice given to you by your health care provider. Make sure you discuss any questions you have with your health care provider. Document Revised: 04/22/2023 Document Reviewed: 11/26/2022 [employer] Patient Education ? 2023 [employer] Urology Vasectomy, Care After This sheet gives you information about how to care for yourself after your procedure. Your health care provider may also give you more specific instructions. If you have problems or questions, contact your health care provider. What can I expect after the procedure? After the procedure, it is common to have: ? Mild pain, swelling, or discomfort in your scrotum or redness on your scrotum. ? Some blood coming from your incisions or puncture sites for 1 or 2 days. ? Blood in your semen. Follow these instructions at home: Medicines ? Take zwhw-fxg-akkgnpw and prescription medicines only as told by your health care provider. ? Avoid taking any medicines that contain aspirin or NSAIDs, such as ibuprofen. These medicines can make bleeding worse. Activity ? For the first 2 days after surgery, avoid physical activity and exercise that requires a lot of energy. Ask your health care provider what activities are safe for you. ? Do not take part in sports or perform heavy physical labor until your pain has improved, or until your health care provider says it is okay. ? You may have limits on the amount of weight you can lift as told by your health care provider. ? Do not ejaculate for at least 1 week after the procedure, or for as long as you are told. ? You may resume sexual activity 7?10 days after your procedure, or when your health care provider approves. Use a different method of control (contraception) until you have had test results that confirm that there is no sperm in your semen. Scrotal support ? Use scrotal support, such as a jockstrap or underwear with a supportive pouch, as needed for 1 week after your procedure. ? If you feel discomfort in your scrotum, you may remove the scrotal support to see if the discomfort is relieved. Sometimes scrotal support can press on the scrotum and cause or worsen discomfort. ? If your skin gets irritated, you may add some germ-free (sterile), fluffed bandages or a clean washcloth to the scrotal support. Managing pain and swelling If directed, put ice on the affected area. To do this: ? Put ice in a plastic bag. ? Place a towel between your skin and the bag. ? Leave the ice on for 20 minutes, 2?3 times a day. ? Remove the ice if your skin turns bright red. This is very important. If you cannot feel pain, heat, or cold, you have a greater risk of damage to (more content not included)... [facility] 05-23-2023 History of Present illness Narrative HPI: Historian of HPI: patient Andi Recio is a 32 y.o. male who presents today to the Urgent Care with the following complaints and denials which have been present for 10 day(s) C/O Denies Symptom Comments [x] [] Runny Nose [] [x] Difficulty Swallowing [] [x] Sore Throat [x] [] Cough [x] [] Ear Pain Jaw, right side [] [x] Fever [x] [] Chills Last weekend [x] [] Nasal Congestion [x] [] Myalgia Last weekend [] [x] Sinus Pain [] [x] Sinus Pressure Additional Comments: pt has taken tylenol, robatussin OTC medication with relief Pt stated his was seen about a week ago for the same sx and was treated for a sinus infection. ROS: A complete system ROS was performed and negative aside from the pertinent positives noted in the HPI and PE. Physical Exam Constitutional: Appearance: Normal appearance. HENT: Head: Normocephalic. Right Ear: Tympanic membrane normal. Left Ear: Tympanic membrane normal. Nose: Congestion present. Comments: Mild erythema of the nasal membranes noted. Mouth/Throat: Mouth: Mucous membranes are moist. Pharynx: Oropharynx is clear. Eyes: Extraocular Movements: Extraocular movements intact. Conjunctiva/sclera: Conjunctivae normal. Pupils: Pupils are equal, round, and reactive to light. Neck: Vascular: No carotid bruit. Comments: Mild swelling of the lymphatics at the right angle of the mandible and in the submandibular area. This is not tender to palpation. Cardiovascular: Rate and Rhythm: Normal rate and regular rhythm. Heart sounds: Normal heart sounds. Pulmonary: Effort: Pulmonary effort is normal. Breath sounds: Normal breath sounds. No rhonchi or rales. Abdominal: General: Abdomen is flat. Bowel sounds are normal. Palpations: Abdomen is soft. There is no mass. Musculoskeletal: Cervical back: Neck supple. Right lower leg: No edema. Left lower leg: No edema. Lymphadenopathy: Cervical: No cervical adenopathy. Skin: General: Skin is warm and dry. Neurological: General: No focal deficit present. Mental Status: He is alert and oriented to person, place, and time. Psychiatric: Mood and Affect: Mood normal. Behavior: Behavior normal. Diagnoses and all orders for this visit: Acute recurrent maxillary sinusitis (Primary) - doxycycline (Vibramycin) 100 MG capsule; Take 1 capsule (100 mg) by mouth in the morning and 1 capsule (100 mg) before bedtime. Do all this for 10 days. Take with at least 8 ounces (large glass) of water, do not lie down for 30 minutes after. Take medications as prescribed. Use a humidifier when possible. May use acetaminophen or ibuprofen for pain or fever. RTO if worsening. IH Testing: documented in this encounter [facility] Evaluation + Plan note Future Appointments Appointment Date:04/19/2024 03:30:00 PM Scheduled Provider:Laron AL MD Location:[facility] Appointment Type:URO Office Visit [facility] Evaluation note No assessment inform ation available [facility] [employer] Work Phone: Evaluation note Diagnosis Acute recurrent maxillary sinusitis- Primary documented in this encounter [facility]* Diagnosis Well adult exam- Primary Routine general medical examination at a health care facility Major depressive disorder in remission, unspecified whether recurrent (CMS/HCC) Generalized anxiety disorder (CMS/HCC) Generalized anxiety disorder Panic attacks (CMS/HCC) Panic disorder without agoraphobia Gastroesophageal reflux disease, unspecified whether esophagitis present documented in this encounter [facility] Narrative No data available for this section [facility] Discharge instructions Additional Instructions 1. No driving if taking narcotic pain medication. 2. No lifting more than 20 pounds for 3 weeks. 3. May shower.[facility] [employer] Work Phone: Progress note No data available for this section [facility] Chief Complaint and Reason for Visit Chief Complaint Incisional Hernia Incisional Hernia Advance Directives No Advanced Directives Records Found Advance Directive Response Recorded Date/ Time Advance Directives No September 22 12:04pm Summary Purpose Family History No Family History Records Found Additional Source Comments Care Teams (unrecognized sec tion and content) Team Status: Inactive Member Role Status Dates Farnaz Bedoya NP-C Primary Care Provider Active Tristan Tan MD Attending Provider Active Team Status: Active Member Role Status Dates Farnaz Bedoya MEDICAL DATA ANALYST-C Primary Care Provider Active Bank Worker Relationship Specialty Start Date End Date Isha Newberry MD [address] [place] [address] PCP - General Family Medicine 08/18/22 Bank Worker Relationship Specialty Start Date End Date Isha Newberry MD [address] [place] [address] PCP - General Family Medicine 08/18/22 Farnaz Bedoya NP [address] [place] [address] Nurse Practitioner Family Medicine 05/24/23 Bank Worker Relationship Specialty Start Date End Date Isha Newberry MD [address] [place] [address] PCP - General Family Medicine 08/18/22 Farnaz Bedoya NP [address] [place] [address] Nurse Practitioner Family Medicine 05/24/23 (unrecognized sect ion and content) No Status Records FoundNo Status Records FoundNo Status Records Found INFORMATION SOURCE (unrecogn ized section and content) DATE CREATED AUTHOR 06/20/2022 [facility] DATE CREATED AUTHOR AUTHOR'S ORGANIZ ATION 02/21/2024 [facility] DATE CREATED AUTHOR AUTHOR'S RADHA ATION 03/26/2024 [facility] FOR RECORDS PERTAINING TO PATIENTS WHO ARE OR HAVE BEEN ENROLLED IN A CHEMICAL DEPENDENCY/SUBSTANCEABUSE PROGRAM, SOME INFORMATION MAY BE OMITTED. This clinical summary was aggregated from multiple sources. Caution should be exercised in using it in the provision of clinical care. This summary normalizes information from multiple sources, and as a consequence, information in this document may materially change the coding, format and clinical context of patient data. In addition, data may be omitted in some cases. CLINICAL DECISIONS SHOULD BE BASED ON THE PRIMARY CLINICAL RECORDS. [employer] [facility]. provides no warranty or guarantee of the accuracy or completeness of information in this document.
[2024-03-30] MEDS: LACTATED RINGER'S SOLUTION 1,000 ML 50 ML IV ×2 (09:37→12:36)
[2024-03-30] MEDS: CEFAZOLIN SODIUM 2 GM/50 ML D5W PREMIX IV (10:40)
[2024-03-30] MEDS: BACITRACIN OINTMENT 28.4 GM TUBE 1 APPLIC TOPICAL (11:35)
--- NOTE | 2024-03-30 11:46 | PM.URSON ---
Urology Surgery Operative Note Operative Note Procedure Date: 03/30/24 Time Out Performed: yes Pre-op Diagnosis: 1. Lincoln male. 2. Penile condyloma Post-op Diagnosis: same as pre-op Procedures performed: 1. Bilateral segmental vasectomy. 2. CO2 laser of penile condyloma x 14. 3. Excision of penile condyloma x 1. Anesthesia: General-LMA Primary Surgeon: Laron Al Complications: None Estimated blood loss (mL): 5 Findings: Multiple penile condyloma. Specimens: 1 cm excised penile condyloma Drains: None Indications for Procedures: This gentleman is a fertile male and is desirous of sterilization. He also has multiple penile condyloma. He is desirous of eradicating these. He has signed an informed consent for bilateral segmental vasectomy and CO2 laser of penile condyloma and excision of penile condyloma. Detailed description of Procedure: The patient was brought to the operating room and kept on the operating room table in the supine position. Timeout was done by all parties in the room. We all agreed upon the patient's identification and the planned procedures for this patient. General anesthesia was then administered via LMA. His genitalia were then sterilely prepped and draped in the usual fashion. I started on the left hemiscrotum and palpated the vas and brought it up to the anterior scrotal surface. A 15 blade scalpel was used to make a small cristhian in the scrotum over the vas. A hemostat was used to bluntly dissect to the vas. A ringed grasping forceps was then used to get a purchase on the vas. A loop of vas was then freed up with blunt dissection and Bovie cautery dissection. Both ends of the loop were clamped with a hemostat. The loop was then excised with the 15 blade scalpel and sent for permanent sections. Both ends of the vas were then coagulated. Both ends were tied with a 2-0 Vicryl tie. The proximal end was then everted upon itself with a 4-0 Vicryl stitch. Tiny bleeders were coagulated with the Bovie cautery and the scrotal subcu. The ends were then allowed to fall back in the hemiscrotum. Once perfect hemostasis was verified the small cristhian in the scrotum was closed with 4-0 Vicryl in an interrupted fashion. The exact same maneuver was then done on the right side. At the end of the procedure a bilateral segmental vasectomy was completed. We then turned our attention to the penis. We soaked the penis with acetic acid. We then used the CO2 laser at 4 W continuously. We then lased each of the 14 penile condyloma in the usual fashion. The last 1 remaining, the largest was then excised with a 15 blade scalpel and sent for permanent sections. This incision was closed with 4-0 Vicryl in a interrupted fashion. We then rewrapped the penis and an acetic acid soaked gauze and there were a few acetowhite areas. These were then also lased. Upon completion we then placed bacitracin ointment over each lased site, the incision and the scrotal incisions. Fluffs and a scrotal support were then applied. He was then transferred to a [facility] bed and wheeled to PACU in stable condition.
--- NOTE | 2024-03-30 12:15 | PC.NURSE ---
1155- Patient opens eyes to name. Oral airway removed. Even chest rise and fall noted.
== END 2024-03-30 12:53 | disposition home or self-care (01) ==
PROVIDERS: PCP Student in an Organized Health Care Education/Training Program; Visit Provider Urology
PROC: (CPT 55250; principal; 2024-03-30 10:10)
DX: Z30.2 Encounter for sterilization (principal); A63.0 Anogenital (venereal) warts; F32.A Depression, unspecified; Z79.899 Other long term (current) drug therapy
CPT/HCPCS: 55250; 54057; 11421; 88302; 88305; J0690; J1100; J1885; J2250; J2405; J2704; J3010